=== PATIENT | female | born 1950 | race African-American/Black ===

== ENCOUNTER 2024-11-28 14:10 | Inpatient (IN) | payer MEDICARE, MEDICAID ==
[2024-11-28] MEDS ORDERED: Albuterol 2.5 MG (3 mL) NEB ONE ×2 (14:51→16:58)
[2024-11-28] MEDS ORDERED: methylPREDNISolone Sod Succ/PF 125 MG/2 ML VIAL ONE (14:52)
[2024-11-28 14:54] LABS: #Basophils Less than 0.03 10x3/uL (0.0-0.2); #Eosinophils Less than 0.03 10x3/uL (0.0-0.7); %Basophils 0.1 % (0.0-1.0); %Eosinophils 0.1 % (0.0-10.0); %Lymphocytes 18.8 % (21.0-51.0); %Monocytes 8.3 % (0.0-10.0); %Neutrophils 72.3 % (42.0-75.0); Hematocrit 40.3 % (36.0-47.0); Hemoglobin 12.9 g/dL (12.0-16.0); Mean Corpuscular Hemoglobin 30.6 pg (27.0-31.0); Mean Corpuscular Volume 95.7 fL (78.0-98.0); Mean Platelet Volume 10.4 fL (7.4-10.4); Platelet Count 217 10x3/uL (130-400); Red Blood Cell (RBC) Count 4.21 mill/uL (4.20-5.40)
[2024-11-28] MEDS ORDERED: Ipratropium Bromide 2.5 ml Neb ONE (14:54)
[2024-11-28 15:19] LABS: ALT (SGPT) 101 U/L (8-55); AST (SGOT) 153 U/L (5-34); Alkaline Phosphatase 396 U/L (40-110); Anion Gap 23 mmol/L (10-20); BUN (Urea Nitrogen) 72 mg/dL (9.8-20.1); Bilirubin, Total 4.5 mg/dL (0.2-1.2); Calc. Creatinine Clearance 0 mL/min (70-130); Calcium 9.3 mg/dL (7.8-10.44); Carbon Dioxide 30 mmol/L (23-31); Chloride 89 mmol/L (98-107); Estimated GFR 11; Globulin 5.3 g/dL (2.4-3.5); Glucose 303 mg/dL (83-110); Potassium 3.3 mmol/L (3.5-5.1); Protein, Total 8.3 g/dL (5.8-8.1); Sodium 139 mmol/L (136-145)
[2024-11-28 15:24] LABS: Troponin I Less than 0.010 ng/mL (< 0.028)
[2024-11-28 15:37] LABS: Actual Bicarbonate (HCO3v) 33.7 mEq/L (22-28); Base Excess 4.8 mEq/L (-2.0 to +3.0); Chloride (VBG) 90 mmol/L (98-106); Hematocrit-VBG 41 % (36.0-47.0); Hemoglobin (Hb) 13.9 g/dL (11.7-16.1); Sodium 138 mmol/L (133-146); pH (venous) 7.292 (7.32-7.43)
[2024-11-28] MEDS ORDERED: LevoFLOXacin 750 mg/D5W 150 ml Premix Bag ONE (16:58)
[2024-11-28 17:45] LABS: Actual Bicarbonate (HCO3a) 31.3 mEq/L (22-28); Analyzer IN Cardio ER; Base Excess (BEa) 3.4 mEq/L (-2.0 to +3.0); Calcium, Ionized (arterial) 0.98 mmol/L (1.12-1.30); Carboxyhemoglobin (COHb) 1.2 gm% (0.0-3.0); Hematocrit-ABG 39 % (36.0-47.0); Hemoglobin (Hb) 13.2 g/dL (12.0-16.0); Potassium - ABG Lab 3.28 mmol/L (3.70-5.30); pH, Arterial 7.311 (7.35-7.45)
[2024-11-28 17:46] LABS: ALV-art Gradient 14.955 mmHg (0-20); CO2 Tension 63.5 mmHg (35.0-45.0); Puncture Site Right Radial artery
[2024-11-28] MEDS ORDERED: Ondansetron PF 4 MG/2 ML Vial IVP PRN (18:45)
[2024-11-28] MEDS ORDERED: Acetaminophen 325 MG TAB PO PRN (18:45)
[2024-11-28] MEDS ORDERED: Ondansetron ODT 4 MG TAB SL PRN (18:45)
[2024-11-28] MEDS ORDERED: Calcium Carbonate 500 MG ChewTAB PO PRN (19:20)
[2024-11-28] MEDS ORDERED: Glucagon 1 MG/ML KIT IM PRN (19:29)
[2024-11-28] MEDS ORDERED: Dextrose 50% Abboject 50 ML SYRINGE SLOW IVP PRN (19:29)
[2024-11-28] MEDS ORDERED: Dextrose 5% in Water 1,000 ML IV PRN (19:29)
[2024-11-28] MEDS ORDERED: Potassium Bicarbonate/Cit Ac 20 MEQ TAB PO SCH (19:30)
[2024-11-28 19:45] LABS: Lactic Acid 5.25 mmol/L (0.5-2.2)
[2024-11-28 19:48] LABS: Troponin I Less than 0.010 ng/mL (< 0.028)
[2024-11-28] MEDS ORDERED: Famotidine 20 MG TAB PO SCH (21:00)
[2024-11-28] MEDS ORDERED: Metolazone 2.5 MG TAB PO SCH (21:00)
[2024-11-28] MEDS: Cyanocobalamin (Vitamin B-12) 1,000 MCG TAB PO SCH (21:19)
[2024-11-28] MEDS: Furosemide 100 MG in Sodium Chloride 0.9% 100 ML IVPB SCH (21:19)
[2024-11-28] MEDS: Doxycycline 100 MG CAP PO SCH (21:19)
[2024-11-28] MEDS: Potassium Chloride 20 MEQ TAB PO SCH (21:19)
[2024-11-28] MEDS: Metoprolol Tartrate 25 MG TAB PO SCH (21:19)
[2024-11-28] MEDS: Insulin Glargine 30 UNITS/0.3 ML VIAL SC SCH (21:19)
[2024-11-28] MEDS: Senokot S 8.6-50 MG TAB PO SCH (21:19)
[2024-11-28] MEDS: Ipratropium/Albuterol 3 ML NEB NEB PRN (22:38)
[2024-11-28] MEDS: Ipratropium Bromide 2.5 ml Neb NEB SCH (22:47)
[2024-11-28 23:12] VITALS: BMI 54.9
[2024-11-28 23:52] LABS: Troponin I Less than 0.010 ng/mL (< 0.028)
[2024-11-29] MEDS: Insulin Regular, Human 100 UNIT/ML 10 ML VIAL SC PRN ×2 (02:13→05:17)
[2024-11-29] MEDS: Albumin 25% 25 GM (100 mL) BOT IVPB SCH ×2 (03:17→10:09)
[2024-11-29] MEDS ORDERED: hydrALAZINE 20 MG/ML VIAL SLOW IVP PRN (04:02)
[2024-11-29 04:08] LABS: #Basophils Less than 0.03 10x3/uL (0.0-0.2); #Eosinophils Less than 0.03 10x3/uL (0.0-0.7); %Basophils 0.1 % (0.0-1.0); %Lymphocytes 6.4 % (21.0-51.0); %Monocytes 3.9 % (0.0-10.0); %Neutrophils 88.5 % (42.0-75.0); Hematocrit 37.5 % (36.0-47.0); Hemoglobin 11.8 g/dL (12.0-16.0); Mean Corpuscular HGB CONC 31.5 g/dL (32.0-36.0); Mean Corpuscular Hemoglobin 30.3 pg (27.0-31.0); Mean Corpuscular Volume 96.2 fL (78.0-98.0); Mean Platelet Volume 10.1 fL (7.4-10.4); Platelet Count 211 10x3/uL (130-400); RBC Distribution Width 15.9 % (11.5-14.5)
[2024-11-29 04:20] LABS: Lactic Acid 1.81 mmol/L (0.5-2.2)
[2024-11-29 04:25] LABS: ALT (SGPT) 109 U/L (8-55); AST (SGOT) 177 U/L (5-34); Albumin 3.2 g/dL (3.4-4.8); Alkaline Phosphatase 388 U/L (40-110); Anion Gap 21 mmol/L (10-20); BUN (Urea Nitrogen) 79 mg/dL (9.8-20.1); Bilirubin, Direct 3.5 mg/dL (0.1-0.3); Bilirubin, Total 4.5 mg/dL (0.2-1.2); Calc. Creatinine Clearance 25 mL/min (70-130); Calcium 9.1 mg/dL (7.8-10.44); Carbon Dioxide 30 mmol/L (23-31); Chloride 89 mmol/L (98-107); Estimated GFR 11; Glucose 397 mg/dL (83-110); Lipase 9 U/L (8-78); Magnesium 2.4 mg/dL (1.6-2.6); Potassium 3.9 mmol/L (3.5-5.1); Protein, Total 8.2 g/dL (5.8-8.1); Sodium 136 mmol/L (136-145)
[2024-11-29] MEDS: NIFEdipine XL 30 MG ER.TAB PO SCH (05:18)
[2024-11-29 07:00] LABS: Bacteria/HPF None Seen HPF (None Seen); Bilirubin Negative (Negative); Blood, Urine Negative (Negative); Clarity Clear (Clear); Glucose, Urine (Dipstick) Greater than 1000 mg/dL (Negative); Ketone, Urine Negative (Negative); Leukocyte Negative Leu/uL (Negative); Nitrite Negative (Negative); Protein, Urine (Dipstick) Negative (Neg-Trace); RBC/HPF 0-3 HPF (0-3); Specific Gravity, Urine 1.018 (1.002-1.036); WBC/HPF None Seen HPF (0-3)
[2024-11-29] MEDS: Budesonide 0.5 MG/2 ML NEB INH SCH (07:10)
[2024-11-29] MEDS: Ezetimibe 10 MG TAB PO SCH (10:09)
[2024-11-29] MEDS: Potassium Chloride 20 MEQ TAB PO SCH (10:09)
[2024-11-29] MEDS: Pantoprazole 40 MG DR.TAB PO SCH (10:10)
[2024-11-29] MEDS: Rivaroxaban 15 MG TAB PO SCH (10:10)
[2024-11-29] MEDS: Loratadine 10 MG TAB PO SCH (10:10)
[2024-11-29 14:23] LABS: Influenza A by NAA DETECTED (NotDetected); Influenza B by NAA Not Detected (NotDetected); RSV by NAA Not Detected (NotDetected); SARS-CoV-2 NAA Rapid Test Not Detected (NotDetected)
[2024-11-29 15:50] LABS: Anion Gap 20 mmol/L (10-20); BUN (Urea Nitrogen) 76 mg/dL (9.8-20.1); Calc. Creatinine Clearance 26 mL/min (70-130); Calcium 9.6 mg/dL (7.8-10.44); Carbon Dioxide 33 mmol/L (23-31); Chloride 91 mmol/L (98-107); Estimated GFR 11; Glucose 197 mg/dL (83-110); Potassium 4.2 mmol/L (3.5-5.1); Sodium 140 mmol/L (136-145)
[2024-11-29] MEDS: Oseltamivir 6 MG/ML ORAL SUSP PO SCH (16:04)
[2024-11-29] MEDS ORDERED: Ipratropium/Albuterol 3 ML NEB NEB PRN (19:55)
[2024-11-29] MEDS: Acetaminophen/Codeine 30-300mg Tablet PO PRN (19:55)
[2024-11-29] MEDS: Metoprolol Tartrate 50 MG TAB PO SCH (20:40)
[2024-11-30 04:01] LABS: #Basophils Less than 0.03 10x3/uL (0.0-0.2); #Eosinophils Less than 0.03 10x3/uL (0.0-0.7); %Basophils 0.2 % (0.0-1.0); %Eosinophils 0.1 % (0.0-10.0); %Lymphocytes 8.2 % (21.0-51.0); %Monocytes 6.4 % (0.0-10.0); %Neutrophils 83.9 % (42.0-75.0); Hematocrit 39.6 % (36.0-47.0); Hemoglobin 12.2 g/dL (12.0-16.0); Mean Corpuscular HGB CONC 30.8 g/dL (32.0-36.0); Mean Corpuscular Hemoglobin 29.9 pg (27.0-31.0); Mean Corpuscular Volume 97.1 fL (78.0-98.0); Mean Platelet Volume 10.6 fL (7.4-10.4); Platelet Count 215 10x3/uL (130-400); RBC Distribution Width 16.5 % (11.5-14.5); Red Blood Cell (RBC) Count 4.08 mill/uL (4.20-5.40)
[2024-11-30 04:21] LABS: ALT (SGPT) 117 U/L (8-55); AST (SGOT) 187 U/L (5-34); Albumin 4.1 g/dL (3.4-4.8); Alkaline Phosphatase 295 U/L (40-110); Anion Gap 18 mmol/L (10-20); BUN (Urea Nitrogen) 85 mg/dL (9.8-20.1); Bilirubin, Total 3.7 mg/dL (0.2-1.2); Calc. Creatinine Clearance 23 mL/min (70-130); Calcium 9.9 mg/dL (7.8-10.44); Carbon Dioxide 32 mmol/L (23-31); Chloride 92 mmol/L (98-107); Estimated GFR 9; Globulin 4.1 g/dL (2.4-3.5); Glucose 190 mg/dL (83-110); Potassium 4.4 mmol/L (3.5-5.1); Protein, Total 8.2 g/dL (5.8-8.1); Sodium 138 mmol/L (136-145)
[2024-11-30 08:39] LABS: Magnesium 2.6 mg/dL (1.6-2.6)
[2024-11-30] MEDS: NIFEdipine XL 30 MG ER.TAB PO SCH (08:45)
[2024-11-30] MEDS: Furosemide 100 MG in Sodium Chloride 0.9% 90 ML IVPB SCH (08:46)
[2024-11-30 12:06] VITALS: BP 134/84
[2024-11-30 13:40] LABS: HBSAB Concentration Less than 8.00 mIU/mL; HBsAg Index 0.19 S/CO (0-0.99); Hep B Core Total Ab NONREACTIVE (NonReactive); Hep B Core Total Index 0.09 S/CO (0-0.79); Hep B Surf AB NONREACTIVE (NonReactive); Hep B Surf Ag NONREACTIVE S/CO (NonReactive); Hep C IgG Ab NONREACTIVE S/CO (NonReactive); Hep C Index 0.07 S/CO (0-0.79)
[2024-11-30 15:00] LABS: O2 Tension (PaO2), arterial 55.4 mmHg (> 70.0)
[2024-11-30] MEDS: DOBUTamine 500 mg/250 ml 250 ML IVPB SCH (17:28)
[2024-11-30] MEDS: Ipratropium/Albuterol 3 ML NEB NEB SCH (19:25)
[2024-11-30] MEDS: Insulin Glargine 30 UNITS/0.3 ML VIAL SC SCH (21:02)
[2024-11-30 22:49] VITALS: TEMP 98
== END 2024-11-30 23:50 | disposition short-term general hospital (02) | DRG 193 ==
LOC: ERS 14:10 → OBSVTOIN 18:31 → 2NO 18:31 → IMCU/EMU 11-30 16:07
PROVIDERS: ADMIT Student in an Organized Health Care Education/Training Program; ATTEND Family Medicine
PROC: 4A033R1 Measurement of Arterial Saturation, Peripheral, Percutaneous Approach (ICD-10-PCS; principal; 2024-11-28)
PROC: 30233J1 Transfusion of Nonautologous Serum Albumin into Peripheral Vein, Percutaneous Approach (ICD-10-PCS; 2024-11-28)
DX: J10.1 Influenza due to other identified influenza virus with other respiratory manifestations (principal); I50.43 Acute on chronic combined systolic (congestive) and diastolic (congestive) heart failure; J96.21 Acute and chronic respiratory failure with hypoxia; J96.22 Acute and chronic respiratory failure with hypercapnia; R57.0 Cardiogenic shock; J44.1 Chronic obstructive pulmonary disease with (acute) exacerbation; N17.9 Acute kidney failure, unspecified; Z68.43 Body mass index [BMI] 50.0-59.9, adult; E87.20 Acidosis, unspecified; I13.0 Hypertensive heart and chronic kidney disease with heart failure and stage 1 through stage 4 chronic kidney disease, or unspecified chronic kidney disease; N18.5 Chronic kidney disease, stage 5; I13.2 Hypertensive heart and chronic kidney disease with heart failure and with stage 5 chronic kidney disease, or end stage renal disease; E66.01 Morbid (severe) obesity due to excess calories; E87.6 Hypokalemia; E11.65 Type 2 diabetes mellitus with hyperglycemia; E11.22 Type 2 diabetes mellitus with diabetic chronic kidney disease; I48.0 Paroxysmal atrial fibrillation; D63.1 Anemia in chronic kidney disease; Z51.5 Encounter for palliative care; G47.33 Obstructive sleep apnea (adult) (pediatric)
CPT/HCPCS: 0241U; 36415; 36416; 36600; 71045; 76705; 80048; 80053; 80076; 81001; 82805; 83605; 83690; 83735; 83880; 84145; 84484; 85025; 85379; 86704; 86706; 86803; 87081; 87340; 93005; 93010; 93306; 93970; 94640; 94760; 96374; 96375; 97139; J1250; J1642; J1815; J1940; J1956; J2919; J7611; J7620; J7626; J7644; P9047

== ENCOUNTER 2024-12-10 16:07 | Emergency (ER) | payer MEDICARE, MEDICAID ==
[2024-12-10 19:09] LABS: #Basophils 0.06 10x3/uL (0.0-0.2); %Basophils 0.9 % (0.0-1.0); %Eosinophils 1.7 % (0.0-10.0); %Lymphocytes 32.5 % (21.0-51.0); %Neutrophils 48.4 % (42.0-75.0); Hematocrit 43.1 % (36.0-47.0); Hemoglobin 13.5 g/dL (12.0-16.0); Mean Corpuscular HGB CONC 31.3 g/dL (32.0-36.0); Mean Corpuscular Hemoglobin 29.7 pg (27.0-31.0); Mean Corpuscular Volume 94.9 fL (78.0-98.0); Mean Platelet Volume 11.1 fL (7.4-10.4); Platelet Count 311 10x3/uL (130-400); RBC Distribution Width 14.7 % (11.5-14.5); Red Blood Cell (RBC) Count 4.54 mill/uL (4.20-5.40)
[2024-12-10 19:26] LABS: ALT (SGPT) 23 U/L (Less than 34); AST (SGOT) 42 U/L (11-34); Albumin 3.5 g/dL (3.1-4.5); Alkaline Phosphatase 218 U/L (40-110); Anion Gap 19 mmol/L (10-20); Bilirubin, Total 0.9 mg/dL (0.3-1.2); Calc. Creatinine Clearance 0 mL/min (70-130); Calcium 10.2 mg/dL (7.8-10.44); Carbon Dioxide 35 mmol/L (23-31); Chloride 89 mmol/L (98-107); Estimated GFR 11; Globulin 4.7 g/dL (2.4-3.5); Glucose 236 mg/dL (83-110); Potassium 3.5 mmol/L (3.5-5.1); Protein, Total 8.2 g/dL (5.8-8.1); Sodium 139 mmol/L (136-145)
[2024-12-10 19:33] LABS: BUN (Urea Nitrogen) 146 mg/dL (9.8-20.1)
[2024-12-10 22:08] LABS: Bilirubin Negative (Negative); Blood, Urine Negative (Negative); CAUTI Indications for Culture Dysuria,urgency,freq; Glucose, Urine (Dipstick) 300 mg/dL (Negative); Ketone, Urine Negative (Negative); Leukocyte 500 Leu/uL (Negative); Nitrite Negative (Negative); Protein, Urine (Dipstick) Negative (Neg-Trace); Specific Gravity, Urine 1.016 (1.002-1.036); Urobilinogen Normal mg/dL (Less than 2); WBC/HPF 21-50 HPF (0-3); Yeast-Budding 3+ HPF (None Seen); pH, Urine 5.5 (5.0-9.0)
[2024-12-10 22:10] LABS: Bacteria/HPF 1+ HPF (None Seen); Clarity Cloudy (Clear)
[2024-12-10 22:11] LABS: Urine Culture Reflex Yes Yes
== END 2024-12-11 02:54 ==
LOC: ERS 16:07
DX: N39.0 Urinary tract infection, site not specified (principal); N18.9 Chronic kidney disease, unspecified; R33.9 Retention of urine, unspecified; I13.0 Hypertensive heart and chronic kidney disease with heart failure and stage 1 through stage 4 chronic kidney disease, or unspecified chronic kidney disease; I50.9 Heart failure, unspecified; N18.30 Chronic kidney disease, stage 3 unspecified; K21.9 Gastro-esophageal reflux disease without esophagitis; E78.5 Hyperlipidemia, unspecified; I48.91 Unspecified atrial fibrillation; Z79.4 Long term (current) use of insulin; Z79.899 Other long term (current) drug therapy; Z79.01 Long term (current) use of anticoagulants
CPT/HCPCS: 36415; 36416; 51702; 71045; 80053; 81001; 85025; 87077; 87086; 93005